=== PATIENT | female | born 1945 | race Caucasian/White ===

== ENCOUNTER 2021-05-13 16:24 | Inpatient (IN) | payer OTHER ==
[~2021-05-13] VITALS: Ht 154.9 cm; Wt 62.6 kg
[~2021-05-13 16:24] MED LIST: ALENDRONATE SOD10 MG PO; AMLODIPINE BES2.5 MG PO; LISINO PO; LISINOPRIL10 MG PO; OSTERA TABLET1 EACH PO; SIMVASTATIN40 MG PO
[2021-05-20] MEDS ORDERED: AMLODIPINE BESYL5 MG (09:15)
[2021-05-20] MEDS ORDERED: ATORVASTATIN CA40 MG (09:15)
[2021-05-22] MEDS ORDERED: BACTRIM DS TAB1 EACH PO (06:29)
[2021-05-22] MEDS ORDERED: XARELTO10 MG PO (06:29)
[2021-05-22] MEDS ORDERED: OXYC1TAB9 PO (06:29)
[2021-05-22] MEDS ORDERED: INTEGRA PLUS C1 EACH PO (06:29)
== END 2021-05-22 13:15 | disposition home or self-care (01) | DRG 469 ==
LOC: O/R 05-20 05:00 → SURH 05-20 07:00 → SURG 05-20 13:36 → MEDJ 05-21 15:00
PROVIDERS: ADMIT Orthopaedic Surgery Sports Medicine; ATTEND Orthopaedic Surgery Sports Medicine
PROC: 0SRC0J9 Replacement of Right Knee Joint with Synthetic Substitute, Cemented, Open Approach (ICD-10-PCS; principal; 2021-05-20 07:00)
PROC: 4A12X4Z Monitoring of Cardiac Electrical Activity, External Approach (ICD-10-PCS; 2021-05-21)
DX: M17.11 Unilateral primary osteoarthritis, right knee (principal); U07.1 COVID-19; D62 Acute posthemorrhagic anemia; I10 Essential (primary) hypertension; E78.49 Other hyperlipidemia